=== PATIENT | female | born 1945 | race Caucasian/White ===

== ENCOUNTER → 2017-09-30 | Outpatient (CLI) | payer OTHER, BC ==
[~2017-09-30] MED LIST: ACET-24 PO; ALBU18002 INH; ANAS1TAB7 PO; ASPEC325 PO; AZEL0.15; CHLO50TA; DICL1GEL12; FLUT50SP45; MELO15TA10 PO; NIFE-95 PO; ONDA-170 PO; POTA-65 PO; RBTUDL5 PO; RXC5 PO; SENN-61 PO; SIMV40TA4 PO; SYMIN160 INH; [UNRECOGNIZED DRUG - CODE] PO
== END | disposition home or self-care (01) ==
LOC: C.LABSPEC 16:36
PROVIDERS: ATTEND Urology
DX: N39.0 Urinary tract infection, site not specified (principal); R39.15 Urgency of urination

== ENCOUNTER 2017-10-04 06:21 | Inpatient (IN) | payer OTHER, BC ==
[2017-08-12 10:36] VITALS: BMI 34.0
--- NOTE | 2017-08-12 11:19 | PAT Medication Instructions ---
Service Date Aug 12, 2017. Current Home Medication List Albuterol Sulfate (Proair Respiclick), 2 PUFFS INH QID PRN for SOB/Wheezing Anastrozole (Anastrozole), 1 TAB PO QAM Azelastine Hcl (Astepro), 2 SPRAYS BID PRN for stuffy nose Budesonide/Formoterol Fumarate (Symbicort 160/4.5 Inhaler), 2 PUFFS INH BID Chlorthalidone (Chlorthalidone), 0.5 TABLET DAILY Diclofenac Sodium (Topical) (Voltaren 1% Top Gel) Fluticasone Propionate (Nasal) (Allergy Nasal [place] 24 Ho), 2 SPRAYS NA DAILY PRN for stuffy nose Guaifenesin (Robitussin), 1 TSP PO DAILY PRN for Cough Meloxicam (Mobic), 15 MG PO DAILY PRN for Pain Nifedipine (Adalat cc), 60 MG PO QAM Potassium Chloride (Potassium Chloride ER), 1 TAB PO BID Simvastatin (Zocor), 40 MG PO QPM Medication Instructions For Your Scheduled Surgery - Hold the following medications per your surgeon's instructions: Meloxicam (Mobic), 15 MG PO DAILY PRN for Pain - Hold the following medications 24 hours prior to surgery: Diclofenac Sodium (Topical) (Voltaren 1% Top Gel) - Hold the following medications the morning of surgery: Potassium Chloride (Potassium Chloride ER), 1 TAB PO BID Chlorthalidone (Chlorthalidone), 0.5 TABLET DAILY Guaifenesin (Robitussin), 1 TSP PO DAILY PRN for Cough - Take the following medications the morning of surgery with a sip of water: Nifedipine (Adalat cc), 60 MG PO QAM Fluticasone Propionate (Nasal) (Allergy Nasal [place] 24 Ho), 2 SPRAYS NA DAILY PRN for stuffy nose (if needed) Budesonide/Formoterol Fumarate (Symbicort 160/4.5 Inhaler), 2 PUFFS INH BID Azelastine Hcl (Astepro), 2 SPRAYS BID PRN for stuffy nose (if needed) Anastrozole (Anastrozole), 1 TAB PO QAM Albuterol Sulfate (Proair Respiclick), 2 PUFFS INH QID PRN for SOB/Wheezing (if needed, and bring with you to the hospital) - Take the following medications as scheduled the night before surgery: Potassium Chloride (Potassium Chloride ER), 1 TAB PO BID Simvastatin (Zocor), 40 MG PO QPM Fluticasone Propionate (Nasal) (Allergy Nasal [place] 24 Ho), 2 SPRAYS NA DAILY PRN for stuffy nose (if needed) Guaifenesin (Robitussin), 1 TSP PO DAILY PRN for Cough Budesonide/Formoterol Fumarate (Symbicort 160/4.5 Inhaler), 2 PUFFS INH BID Azelastine Hcl (Astepro), 2 SPRAYS BID PRN for stuffy nose (if needed) Albuterol Sulfate (Proair Respiclick), 2 PUFFS INH QID PRN for SOB/Wheezing (if needed) If you have any questions please call us at [phone] or [phone] or [phone]
[2017-08-12 12:12] LABS: BASO % 0.5 %; BASO ABS # 0.04 K/uL (0-0.2); EOS % 3.5 %; EOS ABS # 0.27 K/uL (0-0.5); HEMATOCRIT 46.2 % (37-47); HEMOGLOBIN 16.3 g/dL (12.0-16.0); IG# 0.03 K/uL (0.00-0.02); LYMPH % 22.5 %; LYMPH ABS # 1.72 K/uL (1.2-3.4); MEAN CELL VOLUME 89.9 fL (80-100); MEAN CORPUSCULAR HEMOGLOBIN 31.7 pg (25-34); MEAN CORPUSCULAR HGB CONC 35.3 g/dl (32-36); MEAN PLATELET VOLUME 10.2 fL (7.4-10.4); MONO % 8.6 %; MONO ABS # 0.66 K/uL (0.11-0.59); NEUT % 64.5 %; NEUT ABS # 4.94 K/uL (1.4-6.5); PLATELET COUNT 279 K/uL (130-400); RED CELL DISTRIBUTION WIDTH CV 13.3 % (11.5-14.5); RED CELL DISTRIBUTION WIDTH SD 43.6 fL (36.4-46.3); WHITE BLOOD COUNT 7.66 K/uL (4.8-10.8)
[2017-08-12 12:20] LABS: PTT PATIENT 28.3 SECONDS (21.0-31.0)
[2017-08-12 12:21] LABS: ALBUMIN 4.1 gm/dl (3.4-5.0); CALCIUM 9.6 mg/dl (8.5-10.1); CREATININE 0.81 mg/dl (0.60-1.20); POTASSIUM 3.8 mmol/L (3.5-5.1)
[2017-08-12 12:51] LABS: HEMOGLOBIN A1C 5.5 % (4.5-5.6)
--- NOTE | 2017-08-23 16:01 | HISTORY & PHYSICAL EXAMINATION ---
DATE OF ADMISSION: 09/06/2017 CHIEF COMPLAINT: Left knee pain. HISTORY OF PRESENT ILLNESS: Ms. Sierra is a 72-year-old female with a 2-1/2 year history of left knee pain. The patient rates her pain an 8/10. She has pain with her daily activities. She has limited standing and walking tolerance. Pain is worse with weightbearing. The patient has had injections, bracing, PT, anti-inflammatories and Tylenol over the years without relief. She has failed conservative treatment and would like to proceed with elective left knee replacement. PAST MEDICAL HISTORY: Hypertension, hypercholesterolemia, and asthma. She denies heart disease, diabetes or DVT. PAST SURGICAL HISTORY: Hysterectomy, right TKA 2012 and bladder sling. SOCIAL HISTORY: The patient denies alcohol or tobacco use. She lives in a single story home. She is and retired. FAMILY HISTORY: Negative for DVT. MEDICATIONS: Adalat CC 30 mg daily, chlorthalidone 50 mg daily, Voltaren gel 2 grams 4 times daily p.r.n., fluticasone 110 mcg 1 puff 2 times daily, albuterol 90 mcg 2 puffs p.r.n., simvastatin 40 mg daily, anastrozole 1 mg daily, potassium 99 mg daily, Mobic 15 mg daily, Astepro 0.15% nasal spray 1 spray b.i.d. ALLERGIES: SULFA CAUSES A RASH. REVIEW OF SYSTEMS: See HPI. Ten other systems reviewed, all negative. PHYSICAL EXAMINATION: VITAL SIGNS: Height 5 foot 6, weight 205 pounds, BMI is 35. GENERAL: This is a well-developed, well-nourished female who is alert and oriented x3. Mood and affect are appropriate. HEAD, EYES, EARS, NOSE, AND THROAT: Normocephalic, atraumatic. Mucous membranes are moist and intact. NECK: Supple without lymphadenopathy. HEART: Regular rate and rhythm without murmurs, rubs or gallops. LUNGS: Clear to auscultation without wheezes or rhonchi. ABDOMEN: Soft and nontender. Bowel sounds are equal and active. EXTREMITIES: No ecchymosis, redness or warmth. Thigh and calf are soft and nontender. She has mild varus deformity. Range of motion is from 10-110 degrees. She has +1 medial laxity. She is neurovascularly intact with +5/5 strength. X-RAY EXAMINATION: AP and lateral views show joint space narrowing and osteophyte formation mainly medial compartment. IMPRESSION: Degenerative joint disease, left knee. PLAN: The patient will be admitted for a left total knee arthroplasty. We will plan on aspirin for DVT prophylaxis. The patient's PCP is Jonelle Bravo PA-C.
--- NOTE | 2017-09-28 15:53 | HISTORY & PHYSICAL EXAMINATION ---
DATE OF ADMISSION: 10/04/2017 CHIEF COMPLAINT: Left knee pain. HISTORY OF PRESENT ILLNESS: Ayesha is a 71-year-old female with a 2-1/2 year history of left knee pain. She rates her pain an 8/10. Pain is worse with weightbearing. She has pain with her daily activities. She has limited standing and walking tolerance. The patient has had injections, bracing, PT, NSAIDs and Tylenol without relief. She was previously scheduled for surgery earlier this year, but was canceled due to UTI. The patient has been treated, but still has bacteria in her urine, likely from her chronic bladder prolapse. Her PCP has deferred treatment at this point and she has been referred to urology for definitive recommendations. PAST MEDICAL HISTORY: Hypertension, hypercholesterolemia, asthma, bladder prolapse. She denies heart disease, diabetes or DVT. PAST SURGICAL HISTORY: Hysterectomy, right TKA, and bladder sling. SOCIAL HISTORY: The patient denies alcohol or tobacco use. She lives in a single [place] home. She is and retired. FAMILY HISTORY: Negative for DVT. MEDICATIONS: Adalat CC 30 mg, chlorthalidone 50 mg, Voltaren gel, fluticasone 110 mcg, albuterol 90 mcg, simvastatin 40 mg, anastrozole 1 mg, potassium 99 mEq, Mobic 15 mg, Astepro 0.15%. ALLERGIES: SULFA. REVIEW OF SYSTEMS: See HPI. Ten other systems reviewed, all negative. PHYSICAL EXAMINATION: VITAL SIGNS: Height 5 foot 6 inches, weight 205 pounds. BMI is 35. GENERAL: This is a well-developed, well-nourished female who is alert and oriented x3. Mood and affect are appropriate. HEENT: Normocephalic, atraumatic. Mucous membranes are moist and intact. NECK: Supple without lymphadenopathy. HEART: Regular rate and rhythm without murmurs, rubs or gallops. LUNGS: Clear to auscultation without wheezes or rhonchi. ABDOMEN: Soft and nontender. Bowel sounds are equal and active. EXTREMITIES: No ecchymosis, redness or warmth. She has varus deformity, mild effusion. Range of motion is from 10-110 degrees with +1 laxity. She is neurovascularly intact with +5/5 strength. X-RAY EXAMINATION: AP and lateral views show joint space narrowing and osteophyte formation. IMPRESSION: 1. Degenerative joint disease, left knee. 2. Chronic urinary tract infection. PLAN: The patient is scheduled for a left total knee arthroplasty. We will plan on aspirin for DVT prophylaxis and home physical therapy. The patient has been referred to urology and we are still waiting on clearance and recommendations. The patient is aware that she has chronic UTI, she may be high risk for postop surgical infection. The patient also is dealing with an upper respiratory infection. She was treated with a Z-HERMINIO and a steroid. She was instructed to follow up with her PCP prior to surgery. FLORENCIA
[2017-10-04] VITALS (7 sets, daily range): BP systolic 116–168; BP diastolic 65–86; PULSE 68–99; TEMP 36.4–37.1; O2SAT 92–96; Ht 165.1 cm; Wt 94.3 kg
[~2017-10-04] VITALS: Ht 165.1 cm; Wt 94.3 kg
[~2017-10-04 06:21] MED LIST changes: -ACET-24 PO; +ACETAMINOPHEN 500 MG TAB PO SCH; +ANAS1TAB6 PO; -ANAS1TAB7 PO; -ASPEC325 PO; +CEFAZOLIN 2000MG IV PUSH 10 ML IV SCH; +CeleBREX 200 MG CAP PO SCH; +DEXAMETHASONE 4 MG TAB PO SCH; +FAMOTIDINE 20 MG TAB PO SCH; +GABAPENTIN 300 MG CAP PO SCH; +LACTATED RINGER'S 1000ML 1,000 ML IV SCH; +LACTATED RINGER'S 1000ML 500 ML IV ONE; +LACTATED RINGER'S 1000ML 500 ML IV SCH; +LACTATED RINGER'S 1000ML IV SCH; +METOCLOPRAMIDE HCL 10 MG TAB PO SCH; -NIFE-95 PO; +NIFE1TAB13 PO; -ONDA-170 PO; +ROPIVACAINE 5MG/ML 30 ML 150 MG, BUPIVACAINE 0.5% MPF INJ 30 ML, EpINEphrine HCL INJ 0.... INFIL SCH; -RXC5 PO; -SENN-61 PO; -[UNRECOGNIZED DRUG - CODE] PO
[2017-10-04] MEDS ORDERED: BUPIVACAINE 0.5 % 5 MG/1 ML PF 10ML VIAL ONE (06:38)
[2017-10-04] MEDS ORDERED: ROPIVACAINE 0.5% 5 MG/ML 30 ML VIAL ONE (06:38)
--- NOTE | 2017-10-04 06:54 | History & Physical Bridge Note ---
H&P Re-Evaluation Bridge Note: I have examined the patient, reviewed the History & Physical and in the interval since the performance of the History & Physical I have noted the following changes of clinical significance: No changes noted
[2017-10-04] MEDS ORDERED: FENTANYL CITRATE INJ 50 MCG/1 ML 2 ML VIAL ONE (07:09)
[2017-10-04] MEDS ORDERED: MIDAZOLAM HCL 1 MG/ML 2ML VIAL ONE ×2 (07:10→11:12)
[2017-10-04] MEDS ORDERED: ATROPINE SULFATE 0.1 MG/ML 5ML SYR IV PRN (07:45)
[2017-10-04] MEDS ORDERED: EpHEDrine SULFATE INJ 50 MG/ML AMP IV PRN (07:45)
[2017-10-04] MEDS ORDERED: PHENYLEPHRINE 100MCG/ML 5ML SYR IV PRN (07:45)
[2017-10-04] MEDS ORDERED: ONDANSETRON INJ 2 MG/ML 2 ML VIAL IV PRN ×2 (07:45→11:30)
[2017-10-04] MEDS ORDERED: HYDROmorphone INJ 2 MG/ML SYR/VIAL IV PRN (07:45)
[2017-10-04] MEDS ORDERED: SCOPOLAMINE 1.5 MG TDSY TD ONE (07:50)
[2017-10-04] MEDS ORDERED: ONDANSETRON INJ 2 MG/ML 2 ML VIAL ONE ×2 (07:50→11:12)
[2017-10-04] MEDS ORDERED: BACITRACIN 50000 UNIT VIAL ONE (08:26)
[2017-10-04] MEDS ORDERED: ORTHO JOINT ANESTHETIC ONE (08:26)
[2017-10-04] MEDS ORDERED: POVIDONE-IODINE OP SOLN 30 ML BTL ONE (08:26)
[2017-10-04] MEDS ORDERED: NURSING VERBAL MED ORDER STA (08:27)
[2017-10-04] MEDS: TRANEXAMIC ACID INJ 1,000 MG in SYRINGE 0 ML IV SCH ×2 (09:05→12:57)
[2017-10-04] MEDS ORDERED: DEXAMETHASONE SOD INJ 4 MG/ML VIAL ONE (11:12)
[2017-10-04] MEDS ORDERED: PROPOFOL IV EMULSION 10 MG/ML 20 ML VIAL IV ONE (11:12)
[2017-10-04] MEDS ORDERED: ALBUTEROL HFA 8 GM INHALER INH PRN (11:30)
[2017-10-04] MEDS ORDERED: OXYCODONE HCL IR 5 MG TAB (IMMEDIATE RELEASE) PO PRN (11:30)
[2017-10-04] MEDS ORDERED: MoRPHine SULFATE 4 MG/ML 1 ML CARP\\VIAL IV PRN (11:30)
--- NOTE | 2017-10-04 11:32 | [facility] Post Operative Brief Note ---
Immediate Operative Summary Operative Date Oct 04, 2017. Pre-Operative Diagnosis Degenertive Joint Disease Left Knee Post-Operative Diagnosis Degenertive Joint Disease Left Knee Procedure(s) Performed Left Total Knee Arthroplasty Surgeon Dr. Wero Fraser Security Installation Sales Technician Surgeon(s) Juan J Diaz Pa-C Estimated Blood Loss 25cc Findings see dictated op note Fluids (cc crystalloids) 2000 Specimens Permanent Specimen: A: Left Knee Bone and Tissue Drains none Anesthesia general Complication(s) None Disposition Recovery Room / PACU
--- NOTE | 2017-10-04 12:20 | DIAGNOSTIC IMAGING REPORT ---
L KNEE 1 OR 2 VIEWS ROUTINE CLINICAL HISTORY: Left knee osteoarthritis. COMPARISON: None FINDINGS: Alignment of the total left knee arthroplasty is anatomic. There is no fracture or unexpected radiopaque foreign body. IMPRESSION: Expected findings following total left knee arthroplasty. Electronically signed by: Ata Bass M.D. 10/04/2017 12:19 PM Dictated Date/Time: 10/04/2017 12:18 PM
--- NOTE | 2017-10-04 12:31 | Anesthesiology Progress Note ---
Anesthesia Post Op Note Date & Time Oct 04, 2017 at 12:31 Vital Signs Pain Intensity: 0 Vital Signs Past 12 Hours Date Time Temp Pulse Resp B/P (MAP) Pulse Ox O2 Delivery O2 Flow Rate FiO2 10/04/17 12:25 92 16 141/72 94 Nasal Cannula 4 10/04/17 12:15 36.8 92 16 133/77 94 Nasal Cannula 4 10/04/17 12:05 98 16 136/78 93 Nasal Cannula 4 10/04/17 11:56 36.4 98 16 133/68 96 Oxymask 8 10/04/17 06:59 37 99 18 168/86 96 Room Air Notes Mental Status: alert / awake / arousable, participated in evaluation Pt Amnestic to Procedure: Yes Nausea / Vomiting: adequately controlled Pain: adequately controlled Airway Patency, RR, SpO2: stable & adequate BP & HR: stable & adequate Hydration State: stable & adequate Anesthetic Complications: no major complications apparent
[2017-10-04] MEDS: ACETAMINOPHEN 500 MG TAB PO SCH ×2 (14:00→21:09)
[2017-10-04] MEDS: SODIUM CHLORIDE 0.9% 1000ML 1,000 ML IV SCH (14:12)
--- NOTE | 2017-10-04 16:14 | Orthopedic Progress Note ---
Orthopedic Progress Note Date of Service Oct 04, 2017. Subjective Reports: feeling well, pain controlled w PO medications, Denies: complaints, chest pain, SOB, nausea / vomiting, light headedness, calf pain Additional Notes: Postoperative progress note Patient seen lying in bed, doing well, pain well-controlled, no acute issues. Objective LLE: NVSI SILT grossly, decreased strength to +EHF/TA, +FHL/GS, +2DP pulse, CR< 2 seconds, dressing cdi, compartments soft NT. Date Time Temp Pulse Resp B/P (MAP) Pulse Ox O2 Delivery O2 Flow Rate FiO2 10/04/17 15:25 37.1 90 18 131/76 (94) 93 Room Air 10/04/17 13:35 36.4 95 19 136/73 (94) 95 Nasal Cannula 2.0 10/04/17 12:57 37.0 84 19 138/77 (97) 94 Nasal Cannula 3.0 10/04/17 12:30 37.0 89 16 137/73 (94) 95 Nasal Cannula 3.0 10/04/17 12:30 95 Nasal Cannula 3.0 10/04/17 12:30 94 Nasal Cannula 3.0 10/04/17 12:25 92 16 141/72 94 Nasal Cannula 4 10/04/17 12:15 36.8 92 16 133/77 94 Nasal Cannula 4 10/04/17 12:05 98 16 136/78 93 Nasal Cannula 4 10/04/17 11:56 36.4 98 16 133/68 96 Oxymask 8 10/04/17 06:59 37 99 18 168/86 96 Room Air Assessment & Plan Assessment: s/p L TKA -NV checks -Ancef x 24hr -DVT ppx: ASA BID -WBAT LLE with assistance -PT/OT -PO XR: well aligned, well fixed prothesis, no fractures/dislocation -AM labs -DC planing: Home with home health
--- NOTE | 2017-10-04 16:51 | [facility] Operative Report ---
Operative Report Operative Date Oct 04, 2017. Pre-Operative Diagnosis Degenertive Joint Disease Left Knee Post-Operative Diagnosis Degenertive Joint Disease Left Knee Procedure(s) Performed Left Total Knee Arthroplasty Surgeon Dr. Wero Fraser Supervisor [employer] Surgeon(s) Juan J Diaz Pa-C Estimated Blood Loss 20 ml Fluids 2000 Specimens Permanent Specimen: A: Left Knee Bone and Tissue Drains none Anesthesia general Disposition Recovery Room / PACU Indications The patient is a 72-year-old female who presents with long history of left knee severe tricompartmental DJD which is failed outpatient conservative treatments including NSAIDs, bracing, cortisone injections home walking/exercise program. The patient's symptoms have progressed to the point where it has been difficult for to perform normal activities of daily living. I have indicated the patient for a left total knee arthroplasty, the risks and benefits and complications of the procedure include but are not limited to infection bleeding damage to bone nerves vessels surrounding soft tissue, blood clots loss of function leg length discrepancy dislocation failure of the components need for additional surgery and . The patient wished to proceed with surgery at this time and informed consent was obtained. Appropriate clearances were obtained. Description of Procedure The patient was taken to the operating room and appropriate anesthesia was administered. She was placed supine on the operating room table. A foot roll was placed so we could flex the knee during the procedure as needed. Pneumatic tourniquet was placed on the left upper thigh. Left lower extremity was prepped and draped in usual sterile fashion. Exam demonstrated that she had a varus knee fairly good range of motion. She had moderate obesity. After the leg was sterilely prepped and draped, it was elevated, exsanguinated with Esmarch bandage. Pneumatic tourniquet was raised to 325 mmHg. A midline incision was made anteriorly across the left knee. Skin was incised sharply and subcutaneous flaps were elevated. Incision was made through the medial retinaculum extended up in the mid third of the quadriceps tendon and extended down to the medial tibial tubercle. Intraarticular findings demonstrated that she had significant DJD medial compartment and PFJ [id number] with a varus knee. She did have some tricompartmental osteophytes. The [employer] 2.0 total knee arthroplasty system was used using [email or web address] MRI templating and her femur sized for a 5, tibia for a 3 component. To expose the knee the infrapatellar fat pad was resected. The lateral synovial bands were released. The cruciate ligaments were resected. The meniscal remnants were resected. The fat pad over the anterior femur just above the articular surface for placement of the component in that area was resected. The knee was flexed and retractors were placed and the custom femoral cutting block was pinned in position and the distal femoral cut was made. Then the 5-in-1 cutting block was placed and the anterior, posterior and chamfer cuts were made for the 5 femur. Then attention was taken back to the tibia which was subluxed anteriorly and the custom tibial cutting block was pinned in position and the proximal tibial cut was made. Then we assessed ligamentous balance in extension and flexion utilizing the 10mm spacer block and drop yan and did some releases around the medial side to help with the balance. At this time, the tibia was then resubluxed and the 3 tibial trial was placed in position, externally rotated laterally with the tibial tubercle. The tibal drill and punch for the stem was used. Next the 5 femoral trial was inserted, centered and the notch cutting devices were used to finish prepping the femur. A trial 10mm tibial articulating surface was inserted assessed ligamentous balance again. The 11 trial insert gave balanced ligaments through full range of motion. At this time the knee was extended and a subperiosteal peel lateral release was performed around the patella. Patella width was measured and the patella was prepped utilizing the patella reamer and the 3 drill holes were made for the pegs. The excess lateral facet was beveled off to prevent any impingement. A 32mm patella button was placed and the patella tracked centrally. The trials were removed; the orthopedic anesthetic cocktail was injected per protocol. The knee was copiously irrigated with pulsatile lavage antibiotic solution with bacitracin. The final components were then cemented into place and trial tibial articulating surface inserted. Final components were the 5 Oxinium posterior stabilized [employer] 2.0 left femoral component, size 3 primary tibial baseplate and 32mm patella. Once the cement cured, we trialed once more with the 11mm tibial articulating surface and found the knee to be stable throughout full ROM. The trial component was removed and the final 11mm tibial articular surface was inserted. We copiously irrigated out the knee with pulsatile lavage antibiotic solution and bacitracin. The quadriceps and medial retinaculum were closed with interrupted [id number] #1 Vicryl sutures. The knee was taken through full range of motion and repair was secure. Subcutaneous tissues were closed with interrupted 2-0 Vicryl sutures followed by 3-0 V lock and then the skin was closed with dermabond prineo skin closure system. The sterile dressings were applied and an Jamil wrap from the foot to thigh. Tourniquet was let down and the patient had good capillary refill to the extremity. The patient tolerated the procedure well and was taken to the PACU in stable condition. Due to the complex nature of the procedure, the entire surgery was performed with the operational assistance of Juan J Diaz PA-C. The physician assistant psychiatry, under direct supervision, was involved in the actual performance of all aspects of the surgical procedure including hemostasis, tissue retraction and incision, instrument management, patient positioning, and wound closure. I attest to the content of the Intraoperative Record and any orders documented therein. Any exceptions are noted below. I attest to the content of the Intraoperative Record and any orders documented therein. Any exceptions are noted below.
[2017-10-04] MEDS: CEFAZOLIN IV 2,000 MG in SYRINGE 0 ML IV SCH (17:50)
[2017-10-04] MEDS ORDERED: SENNA 8.6 MG TAB PO SCH (21:00)
[2017-10-04] MEDS ORDERED: SIMVASTATIN 40 MG TAB PO SCH (21:00)
[2017-10-04] MEDS ORDERED: NITROFURANTOIN MACROCRYSTALS 50 MG CAP PO SCH (21:00)
[2017-10-04] MEDS: BUDESONIDE/FORMOTEROL FUMARATE 160/4.5 60 PUFFS/INHALER INH SCH (21:05)
[2017-10-04] MEDS: ASPIRIN 325 MG ECTAB PO SCH (21:09)
[2017-10-04] MEDS: DOCUSATE SODIUM 100 MG CAP PO SCH (21:09)
[2017-10-04] MEDS: POTASSIUM CHLORIDE 20 MEQ TABCR PO SCH (21:10)
[2017-10-05] MEDS ORDERED: NURSING DECISION MEDICATION ORDER SCH (00:45)
[2017-10-05] MEDS: CEFAZOLIN IV 2,000 MG in SYRINGE 0 ML IV SCH (02:04)
[2017-10-05 03:10] VITALS: BP 131/65; PULSE 68; TEMP 36.6; O2SAT 92
[2017-10-05] MEDS: ACETAMINOPHEN 500 MG TAB PO SCH ×2 (05:36→13:27)
[2017-10-05 06:31] LABS: HEMATOCRIT 37.1 % (37-47); HEMOGLOBIN 12.6 g/dL (12.0-16.0); MEAN CELL VOLUME 91.4 fL (80-100); MEAN PLATELET VOLUME 9.7 fL (7.4-10.4); PLATELET COUNT 222 K/uL (130-400); RED CELL DISTRIBUTION WIDTH CV 13.3 % (11.5-14.5); RED CELL DISTRIBUTION WIDTH SD 44.3 fL (36.4-46.3)
[2017-10-05 07:02] LABS: CALCIUM 8.7 mg/dl (8.5-10.1); CREATININE 0.85 mg/dl (0.60-1.20); POTASSIUM 3.5 mmol/L (3.5-5.1)
[2017-10-05 07:35] VITALS: BP 120/80; PULSE 65; TEMP 36.6; O2SAT 93
--- NOTE | 2017-10-05 07:37 | Orthopedic Progress Note ---
Orthopedic Progress Note Date of Service Oct 05, 2017. Subjective Post OP Day: 1 Reports: feeling well, Denies: complaints, chest pain, SOB, nausea / vomiting, light headedness, calf pain, pain controlled w PO medications Additional Notes: Patient seen at bedside, comfortable, no acute issues overnight, pain well controlled Objective LLE NVSI +EHL/FHL/TA/GS SILT grossly, CR< 2 seconds, compartments soft NT, dressing CDI Date Time Temp Pulse Resp B/P (MAP) Pulse Ox O2 Delivery O2 Flow Rate FiO2 10/05/17 03:10 36.6 68 18 131/65 (87) 92 Room Air 10/04/17 23:20 Room Air 10/04/17 22:55 36.6 68 18 116/65 (82) 92 Room Air 10/04/17 19:35 36.7 84 17 121/66 (84) 94 Room Air 10/04/17 15:25 37.1 90 18 131/76 (94) 93 Room Air 10/04/17 15:00 Room Air 10/04/17 13:35 36.4 95 19 136/73 (94) 95 Nasal Cannula 2.0 10/04/17 12:57 37.0 84 19 138/77 (97) 94 Nasal Cannula 3.0 10/04/17 12:30 37.0 89 16 137/73 (94) 95 Nasal Cannula 3.0 10/04/17 12:30 95 Nasal Cannula 3.0 10/04/17 12:30 94 Nasal Cannula 3.0 10/04/17 12:25 92 16 141/72 94 Nasal Cannula 4 10/04/17 12:15 36.8 92 16 133/77 94 Nasal Cannula 4 10/04/17 12:05 98 16 136/78 93 Nasal Cannula 4 10/04/17 11:56 36.4 98 16 133/68 96 Oxymask 8 Laboratory Results 24 Hours: Test 10/05/17 05:29 Hematocrit 37.1 % Hemoglobin 12.6 g/dL Prothromb Time International Ratio 1.0 Prothrombin Time 10.5 SECONDS Assessment & Plan Assessment: s/p L TKA POD#1 -NV checks -Ancef x 24hr -DVT ppx: ASA BID -WBAT LLE with assistance -PT/OT -PO XR: well aligned, well fixed prothesis, no fractures/dislocation -AM labs -DC planing: Home with home health today
[2017-10-05] MEDS ORDERED: ONDA8TAB6 PO (07:54)
[2017-10-05] MEDS ORDERED: RXC5 PO (07:54)
[2017-10-05] MEDS ORDERED: ASPEC325 PO (07:54)
[2017-10-05] MEDS ORDERED: [UNRECOGNIZED DRUG - CODE] PO (07:54)
[2017-10-05] MEDS ORDERED: SENN-61 PO (07:54)
[2017-10-05] MEDS ORDERED: ACET-24 PO (07:54)
--- NOTE | 2017-10-05 07:55 | Discharge Instructions ---
Discharge Instructions Date of Service Oct 05, 2017. Admission Reason for Admission: Left Knee Osteoarthritis Discharge Discharge Diagnosis / Problem: sp left TKA Discharge Goals Goal(s): Decrease discomfort, Improve function, Increase independence Activity Recommendations Activity Limitations: per Instructions/Follow-up section . Instructions / Follow-Up Instructions / Follow-Up ACTIVITY RECOMMENDATIONS: SELF CARE INSTRUCTIONS AFTER TOTAL KNEE REPLACEMENT A. You may need to continue a physical therapy program after discharge from the hospital. There are several options available to you. Your doctor will assist you in selecting the best one for you. 1. An out-patient facility 2 to 3 times a week for therapy or home therapy. 2. Continue working on all exercises taught to you in the hospital. Your goals should be to increase bending of your knee to 90 degrees and beyond and to fully straighten your knee. B. You may progress at your own pace from walking with a walker or crutches to a cane; then to no assistive devices. C. Make walking a part of your daily routine. Be up as much as comfortable with rest periods throughout the day. Rest with leg elevation is very important. Use the ice wrap frequently for the first 3-4 weeks. D. There are no restrictions on activities. You may ride in a car, shop, participate in legal services professional and all social activities. E. Wear the long elastic stockings (SANCHEZ hose) 20 hours a day for 2 weeks after surgery. They can be removed several times a day for laundering and for a bath. F. You may shower, no tub baths until cleared by your doctor. SPECIAL CARE INSTRUCTIONS: VERY IMPORTANT TO READ AND REVIEW A. There are a few signs you need to watch for after you are home. Call [facility] if you notice any of the followin. Increased severe knee pain. Some pain is expected especially when you exercise. 2. Increased swelling in your leg or knee; pain or swelling of the calf muscle in either lower leg. 3. Any fluid drainage from the incision. 4. Shortness of breath or chest pain. B. Please call [facility] at if you have any concerns or questions about your operation or recovery. The doctor or his nurse will return your call promptly. C. You must take antibiotics before dental work, bladder, bowel or other surgery. Your doctor will provide you with a permanent care to carry describing this precaution. IMPORTANT: * REMEMBER TO TAKE ASPIRIN 325 MG TWICE DAILY FOR 4 WEEKS UNLESS OTHERWISE DIRECTED. THIS IS YOUR BLOOD THINNER. * HIGH RISK PATIENTS MAY BE PRESCRIBED A STRONGER BLOOD THINNER. THIS WILL BE PROVIDED AT DISCHARGE. * CALL IF INCREASED PAIN, REDNESS, DRAINAGE OR FEVER GREATER THAT 101. * WEAR SANCHEZ HOSE 20 HOURS PER DAY FOR 2 WEEKS. * DERMABOND Prineo- This is a mesh tape dressing that is covered with glue. It should remain in place until the incision is properly healed, usually 10-14 days. This dressing is designed to naturally slough off. You may trim the excess mesh tape as it peels off. Incision may be briefly wet in a shower. Dry immediately by blotting with a clean, dry towel. Do not bath or swim until instructed by your doctor. Do not scratch, rub, or pick at the dressing. Do not apply any topical ointments or lotions until dressing is completely removed and/or instructed by your doctor. There may be a small piece of suture material at one end of your incision. Do not pull or trim this. If it is bothersome or catching on clothing, you may cover it with a band-aid. FOLLOW UP VISIT: If appointment is not already scheduled: Please call [facility] to make a follow-up appointment for 2 weeks after your surgery at . Current Hospital Diet Patient's current hospital diet: Regular Diet Discharge Diet Recommended Diet: Regular Diet Procedures Procedures Performed: Left Total Knee Arthroplasty Pending Studies Studies pending at discharge: no Laboratory Results Hemoglobin A1c Test 08/12/17 12:00 Range/Units Estimated Average Glucose 111 mg/dl Hemoglobin A1c 5.5 4.5-5.6 % Medical Emergencies . Who to Call and When: Medical Emergencies: If at any time you feel your situation is an emergency, please call 911 immediately. . Non-Emergent Contact Non-Emergency issues call your: Surgeon . "Provider Documentation" section prepared by Priscilla Ramirez. . VTE Core Measure Inpt VTE Proph given/why not?: Other Anticoagulation, T.E.D. Stockings, SCD's [place] Drug Monitoring Program Search Results: patient reviewed within database, no issues identified
[2017-10-05 08:01] VITALS: O2SAT 93
--- NOTE | 2017-10-05 08:09 | Anesthesiology Progress Note ---
Anesthesia Post Op Note Date & Time Oct 05, 2017 at 08:09 Vital Signs Pain Intensity: 0.0 Vital Signs Past 12 Hours Date Time Temp Pulse Resp B/P (MAP) Pulse Ox O2 Delivery O2 Flow Rate FiO2 10/05/17 08:01 93 Room Air 10/05/17 07:35 36.6 65 20 120/80 (93) 93 Room Air 10/05/17 03:10 36.6 68 18 131/65 (87) 92 Room Air 10/04/17 23:20 Room Air 10/04/17 22:55 36.6 68 18 116/65 (82) 92 Room Air Notes Mental Status: alert / awake / arousable, participated in evaluation Pt Amnestic to Procedure: Yes Nausea / Vomiting: adequately controlled Pain: adequately controlled Airway Patency, RR, SpO2: stable & adequate BP & HR: stable & adequate Hydration State: stable & adequate Neuraxial Anesthesia: sensory block resolved Anesthetic Complications: no major complications apparent
[2017-10-05] MEDS ORDERED: ANASTROZOLE 1 MG TAB PO SCH (09:00)
[2017-10-05] MEDS ORDERED: PANTOprazole SOD 40 MG TAB PO SCH (09:00)
[2017-10-05] MEDS ORDERED: MULTIVITAMIN TAB PO SCH (09:00)
[2017-10-05] MEDS ORDERED: NIFEdipine 30 MG CR TAB PO SCH (09:00)
[2017-10-05] MEDS: BUDESONIDE/FORMOTEROL FUMARATE 160/4.5 60 PUFFS/INHALER INH SCH (09:05)
[2017-10-05] MEDS: SODIUM CHLORIDE 0.9% 1000ML 1,000 ML IV SCH (09:05)
[2017-10-05] MEDS: ASPIRIN 325 MG ECTAB PO SCH (09:06)
[2017-10-05] MEDS: DOCUSATE SODIUM 100 MG CAP PO SCH (09:06)
[2017-10-05] MEDS: POTASSIUM CHLORIDE 20 MEQ TABCR PO SCH (09:06)
[2017-10-05 10:59] VITALS: BP 120/80; PULSE 65; TEMP 36.6; O2SAT 93
[2017-10-05 11:50] VITALS: BP 120/70; PULSE 70; TEMP 36.9; O2SAT 91
--- NOTE | 2017-10-10 13:33 | Discharge Summary ---
Orthopedic Discharge Summary Admission Date/Reason Oct 04, 2017 at 08:23 Left Knee Osteoarthritis. Discharge Date/Disposition Oct 05, 2017 Home with services Diagnosis Principal Diagnosis: Left Knee Djd Secondary Diagnoses/Problems: Hypertension, hypercholesterolemia, asthma, bladder prolapse. Procedure(s) Performed Left TKA Medication Reconciliation New Medications: Ondansetron Hcl (Zofran) 8 Mg Tab 8 MG PO Q8 PRN for Nausea, #20 TAB Acetaminophen (Sb Non-Aspirin Extra Stre) 500 Mg Tab 1000 MG PO Q8 for 30 Days, #180 TAB Aspirin (Aspirin) 325 Mg Ectab 325 MG PO BID for 30 Days Nitrofurantoin Macrocrystals (Nitrofurantoin Macrocryst) 50 Mg Cap 50 MG PO HS for 14 Days, CAP Oxycodone HCl (Oxycodone HCl) 5 Mg Tab 5-10 MG PO Q4H PRN for Pain, #60 TAB Senna (Senokot) 8.6 Mg Tab 17.2 MG PO HS for 14 Days, TAB Continued Medications: Albuterol Sulfate (Proair Respiclick) 108 Mcg/Act Aer 2 PUFFS INH QID PRN for SOB/Wheezing Anastrozole (Anastrozole) 1 Mg Tab 1 TAB PO QAM for 30 Days, #30 TAB 5 Refills Azelastine Hcl (Astepro) 0.15 % Spr 2 SPRAYS BID PRN for stuffy nose Budesonide/Formoterol Fumarate (Symbicort 160/4.5 Inhaler) 120 Puffs/ Aero 2 PUFFS INH BID for 30 Days, #1 INHALER 5 Refills Chlorthalidone (Chlorthalidone) 50 Mg Tab 0.5 TABLET DAILY Diclofenac Sodium (Topical) (Voltaren 1% Top Gel) 1 % Gel PRN Fluticasone Propionate (Nasal) (Allergy Nasal [place] 24 Ho) 50 Mcg/Act Spr 2 SPRAYS NA DAILY PRN for stuffy nose Guaifenesin (Robitussin) 100 Mg/5 Ml Celia 1 TSP PO DAILY PRN for Cough Nifedipine (Adalat cc) 30 Mg Tab 60 MG PO QAM Potassium Chloride (Potassium Chloride ER) 20 Meq Tab 1 TAB PO BID Simvastatin (Zocor) 40 Mg Tab 40 MG PO QPM, TAB Discontinued Medications: Meloxicam (Mobic) 15 Mg Tab 15 MG PO DAILY PRN for Pain, TAB Admission Physical Exam As per Admitting History & Physical. Hospital Course The Patient had an uneventful hospital course. Labs remained stable- lowest hemoglobin recorded: 12.6 . Pain controlled on oral medications. Participated in PT with ambulation distance of 200 feet. ROM of operative knee reached 114 degrees. Patient did not have a reported bowel movement. Incision remained clean/dry/intact. DVT prophylaxis with Aspirin EC 81mg BID x 30 days/Janes stockings. Patient discharged home with Home Health Services in stable condition. Please refer to daily progress notes for further details. Discharge Instructions Please refer to the electronic Patient Visit Report (Discharge Instructions) for additional information.
== END 2017-10-05 13:52 | disposition home health service (06) | DRG 470 ==
LOC: C.ACU 06:21 → C.3E 08:23 → ENRESERV 12:03
PROVIDERS: ADMIT Orthopaedic Surgery; ATTEND Orthopaedic Surgery
PROC: 0SRD0J9 Replacement of Left Knee Joint with Synthetic Substitute, Cemented, Open Approach (ICD-10-PCS; principal; 2017-10-04 09:00)
DX: M17.12 Unilateral primary osteoarthritis, left knee (principal); N39.0 Urinary tract infection, site not specified; I10 Essential (primary) hypertension; E78.5 Hyperlipidemia, unspecified; J45.909 Unspecified asthma, uncomplicated; Z88.2 Allergy status to sulfonamides; E66.9 Obesity, unspecified; Z68.35 Body mass index [BMI] 35.0-35.9, adult